=== PATIENT | male | born 1975 | race Caucasian/White ===

== ENCOUNTER 2019-03-21 13:54 | Inpatient (IN) | payer MEDICARE, OTHER ==
[~2019-03-21] VITALS: Ht 187.9 cm; Wt 101.7 kg
[2019-03-21] MEDS: NS IV 1000 ML 1,000 ML IV ONE ×2 (13:46→14:36)
[2019-03-21 14:37] LABS: BASOPHILS % (AUTO) 0 % (0-10); EOSINOPHILS # (AUTO) 0.2 10^3/uL (0.0-0.3); EOSINOPHILS % (AUTO) 1 % (0-10); HEMATOCRIT 48 % (40-54); HEMOGLOBIN 16.5 G/DL (13.3-17.7); LYMPHOCYTES # (AUTO) 2.3 X 10^3 (1.0-4.0); LYMPHOCYTES % (AUTO) 15 % (12-44); MEAN CORPUSCULAR HEMOGLOBIN 31 PG (25-34); MEAN CORPUSCULAR HGB CONC 35 G/DL (32-36); MEAN CORPUSCULAR VOLUME 89 FL (80-99); MEAN PLATELET VOLUME 10.2 FL (7.4-10.4); MONOCYTES % (AUTO) 7 % (0-12); NEUTROPHILS # (AUTO) 12.2 X 10^3 (1.8-7.8); NEUTROPHILS % (AUTO) 77 % (42-75); PLATELET COUNT 296 10^3/uL (130-400); RED CELL DISTRIBUTION WIDTH 13.5 % (10.0-14.5); WHITE BLOOD COUNT 15.8 10^3/uL (4.3-11.0)
--- NOTE | 2019-03-21 14:39 | ED General ---
General Chief Complaint: Skin/Wound Problems Stated Complaint: L FOOT PAIN / SWELLING Nursing Triage Note: STATES HE WAS SEEN AT [facility] ON FRIDAY ET PUT ON CLINDA FOR AN INFECTION IN HIS LEFT GREAT TOE. NOW THERE IS PUS COMING FROM THE AREA AND THERE IS A BLACK SPOT. HAS A HX OF MRSA. Nursing Sepsis Screen: No Definite Risk Source of Information: Patient Exam Limitations: No Limitations (LUCIANO WILLIS STUDENT) History of Present Illness Date Seen by Provider: Mar 21, 2019 Time Seen by Provider: 14:20 Initial Comments Patient presents to the ED today with a 10 day history of a swollen, erythematic left foot. The patient has Diabetes Mellitus Type 2 and was first treated for cellulitis of this same foot at [facility] on . An XR of the foot was taken and he was prescribed Clindamycin. The patients states today that the erythema has improved, but now his big toe is more swollen and has a visible hole/wound that is producing purulent discharge. He is now also experiencing pain in the foot that was not present when seen at [facility]. He states he has also experienced the chills a few times, but has never taken his temperature; he is afebrile upon presentation today. He denies any other systemic symptoms. Timing/Duration: Getting Worse, Other (10 days ago) Severity: Moderate Modifying Factors: improves with Medication (has improved erythema, but not the swelling) Associated Systoms: Fever/Chills, Other (erythematous and inflammed left foot) (LUCIANO WILLIS STUDENT) Initial Comments Here with concerns about worsening of his left great toe. Noticed that it has become increasingly red and has wound that is draining some purulence. He is d iabetic with good control of his blood sugars now but had 10 years of poor control. Does smoke. Denies fevers but reports chills. Timing/Duration: Getting Worse, Other (10 days ago) Severity: Moderate Modifying Factors: improves with Medication (has improved erythema, but not the swelling) Associated Systoms: Fever/Chills; No Nausea/Vomiting, No Weakness; Other (erythematous and inflammed left foot) (WILBER LAUGHLIN MD) Allergies and Home Medications Allergies Coded Allergies: Penicillins (Verified Allergy, Severe, RASH, 03/21/19) Patient Home Medication List Home Medication List Reviewed: Yes (WILBER LAUGHLIN MD) Review of Systems Review of Systems Constitutional: see HPI EENTM: no symptoms reported Respiratory: no symptoms reported Cardiovascular: no symptoms reported Gastrointestinal: no symptoms reported Genitourinary: no symptoms reported Musculoskeletal: see HPI Skin: see HPI Psychiatric/Neurological: No Symptoms Reported Hematologic/Lymphatic: No Symptoms Reported Immunological/Allergic: no symptoms reported (LUCIANO WILLIS) Constitutional: see HPI, chills; No fever Respiratory: No cough, No short of breath Cardiovascular: No chest pain, No palpitations Gastrointestinal: No abdominal pain, No nausea, No vomiting Psychiatric/Neurological: Anxiety; Denies Headache; Paresthesia (bilateral feet) (WILBER LAUGHLIN MD) Past Tcatwqo-Rryamv-Uhjiwd Hx Past Med/Social Hx: Reviewed Nursing Past Med/Soc Hx (WILBER LAUGHLIN MD) Patient Social History Alcohol Use: Denies Use Recreational Drug Use: Yes Drug of Choice: POT Smoking Status: Current Everyday Smoker Recent Foreign Travel: No Contact w/Someone Who Travel: No Recent Infectious Disease Expo: No Recent Hopitalizations: Yes (ER VISIT) (LUCIANO WILLIS) Seasonal Allergies Seasonal Allergies: No (LUCIANO WILLIS) Past Medical History Surgeries: No Respiratory: No Cardiac: Yes (CARDIOVASCULAR DZ) High Cholesterol, Hypertension Neuropathy Genitourinary: No Gastrointestinal: No Musculoskeletal: Yes Fractures Endocrine: Yes Diabetes, Non-Insulin dep HEENT: No Cancer: No Psychosocial: Yes Anxiety, Depression Integumentary: No (LUCIANO WILLIS) Family Medical History Reviewed Nursing Family Hx (WILBER LAUGHLIN MD) Physical Exam-Suspected Sepsis Physical Exam Vital Signs Vital Signs - First Documented 03/21/19 14:00 Temp 36.6 Pulse 96 Resp 16 B/P (MAP) 146/90 (108) Pulse Ox 97 O2 Delivery Room Air (WILBER LAUGHLIN MD) Vital Signs Capillary Refill : Less Than 3 Seconds (LUCIANO WILLIS STUDENT) Blood Pressure Mean: 108 Height, Weight, BMI Height: '" Weight: lbs. oz. kg; 29.00 BMI Method: General Appearance: No Apparent Distress Eyes: Bilateral Eye Normal Inspection, Bilateral Eye PERRL, Bilateral Eye EOMI HEENT: PERRL/EOMI, Pharynx Normal Respiratory: Chest Non Tender, Lungs Clear, Normal Breath Sounds, No Accessory Muscle Use, No Respiratory Distress Cardiovascular: Regular Rate, Rhythm, No Edema, No Gallop, No JVD, No Murmur, Normal Peripheral Pulses Gastrointestinal: Normal Bowel Sounds, No Organomegaly, No Pulsatile Mass, Non Tender, Soft Extremity: Inflammation (Left Foot) Neurologic/Psychiatric: Alert, Oriented x3, Normal Mood/Affect Skin: other (erythema and dry skin on the left foot) Lymphatic: No Adenopathy (LUCIANO WILLIS STUDENT) General Appearance: No Apparent Distress, WD/WN HEENT: PERRL/EOMI, Pharynx Normal Respiratory: Lungs Clear, Normal Breath Sounds Cardiovascular: Regular Rate, Rhythm, No Murmur Extremity: Inflammation (Left Foot), Swelling (left great toe and forefoot) Neurologic/Psychiatric: Alert, Oriented x3 Skin: rash (athlete's foot bilateral), ulcerations (left great toe medial side underneath. 2-3 mm black and ulcer that has some drainage.), other (erythema and dry skin on the left foot) (WILBER LAUGHLIN MD) Focused Exam Lactate Level 03/21/19 15:23: Lactic Acid Level 1.23 (WILBER LAUGHLIN MD) Lactic Acid Level Laboratory Tests Test 03/21/19 15:23 Lactic Acid Level 1.23 MMOL/L (0.50-2.00) (WILBER LAUGHLIN MD) Progress/Results/Core Measures Suspected Sepsis Recent Fever Within 48 Hours: No Infection Criteria Present: Documented Infection New/Unexplained Altered Menta: No Sepsis Screen: No Definite Risk SIRS Temperature: Pulse: 96 Respiratory Rate: 16 Blood Pressure 146 /90 Mean: 108 (LUCIANO WILLIS STUDENT) Results/Orders Lab Results Laboratory Tests Test 03/21/19 14:20 03/21/19 14:45 03/21/19 15:23 Range/Units White Blood Count 15.8 H 4.3-11.0 10^3/uL Red Blood Count 5.34 4.35-5.85 10^6/uL Hemoglobin 16.5 13.3-17.7 G/DL Hematocrit 48 40-54 % Mean Corpuscular Volume 89 80-99 FL Mean Corpuscular Hemoglobin 31 25-34 PG Mean Corpuscular Hemoglobin Concent 35 32-36 G/DL Red Cell Distribution Width 13.5 10.0-14.5 % Platelet Count 296 130-400 10^3/uL Mean Platelet Volume 10.2 7.4-10.4 FL Neutrophils (%) (Auto) 77 H 42-75 % Lymphocytes (%) (Auto) 15 12-44 % Monocytes (%) (Auto) 7 0-12 % Eosinophils (%) (Auto) 1 0-10 % Basophils (%) (Auto) 0 0-10 % Neutrophils # (Auto) 12.2 H 1.8-7.8 X 10^3 Lymphocytes # (Auto) 2.3 1.0-4.0 X 10^3 Monocytes # (Auto) 1.0 0.0-1.0 X 10^3 Eosinophils # (Auto) 0.2 0.0-0.3 10^3/uL Basophils # (Auto) 0.0 0.0-0.1 10^3/uL Neutrophils % (Manual) 75 % Lymphocytes % (Manual) 16 % Monocytes % (Manual) 8 % Band Neutrophils 1 % Hypersegmented Neutrophils MODERATE Blood Morphology Comment NORMAL Prothrombin Time 13.6 12.2-14.7 SEC INR Comment 1.0 0.8-1.4 Activated Partial Thromboplast Time 32 24-35 SEC Sodium Level 142 135-145 MMOL/L Potassium Level 3.5 L 3.6-5.0 MMOL/L Chloride Level 101 98-107 MMOL/L Carbon Dioxide Level 24 21-32 MMOL/L Anion Gap 17 H 5-14 MMOL/L Blood Urea Nitrogen 15 7-18 MG/DL Creatinine 0.88 0.60-1.30 MG/DL Estimat Glomerular Filtration Rate > 60 BUN/Creatinine Ratio 17 Glucose Level 124 H 70-105 MG/DL Calcium Level 9.8 8.5-10.1 MG/DL Corrected Calcium 8.5-10.1 MG/DL Total Bilirubin 0.9 0.1-1.0 MG/DL Aspartate Amino Transf (AST/SGOT) 20 5-34 U/L Alanine Aminotransferase (ALT/SGPT) 31 0-55 U/L Alkaline Phosphatase 159 H 40-136 U/L C-Reactive Protein High Sensitivity 1.01 H 0.00-0.50 MG/DL Total Protein 8.4 H 6.4-8.2 GM/DL Albumin 4.7 H 3.2-4.5 GM/DL Urine Color YELLOW Urine Clarity CLEAR Urine pH 5 5-9 Urine Specific [place] 1.025 H 1.016-1.022 Urine Protein 2+ H NEGATIVE Urine Glucose (UA) NEGATIVE NEGATIVE Urine Ketones 1+ H NEGATIVE Urine Nitrite NEGATIVE NEGATIVE Urine Bilirubin NEGATIVE NEGATIVE Urine Urobilinogen 1 NORMAL MG/DL Urine Leukocyte Esterase 1+ H NEGATIVE Urine RBC (Auto) NEGATIVE NEGATIVE Urine RBC NONE /HPF Urine WBC 5-10 H /HPF Urine Crystals NONE /LPF Urine Bacteria MODERATE H /HPF Urine Casts NONE /LPF Urine Mucus LARGE H /LPF Urine Culture Indicated YES Lactic Acid Level 1.23 0.50-2.00 MMOL/L (IWLBER LAUGHLIN MD) My Orders Orders - WILBER LAUGHLIN MD Cbc With Automated Diff (03/21/19 14:24) Comprehensive Metabolic Panel (03/21/19 14:24) Blood Culture (03/21/19 14:24) Sputum Culture (03/21/19 14:24) Urinalysis (03/21/19 14:24) Urine Culture (03/21/19 14:24) Protime With Inr (03/21/19 14:24) Partial Thromboplastin Time (03/21/19 14:24) Chest 1 View, Ap/Pa Only (03/21/19 14:24) Ed Iv/Invasive Line Start (03/21/19 14:24) Ed Iv/Invasive Line Start (03/21/19 14:24) Vital Signs Adult Sepsis Patie Q15M (03/21/19 14:24) O2 (03/21/19 14:24) Remove Rings In Anticipation O (03/21/19 14:24) Lactic Acid Analyzer (03/21/19 14:24) Ed Iv/Invasive Line Start (03/21/19 14:24) Ns Iv 1000 Ml (Sodium Chloride 0.9%) (03/21/19 14:24) Hs C Reactive Protein (03/21/19 14:28) Wound Culture (03/21/19 14:28) Foot, Left, 3 Views (03/21/19 14:28) Manual Differential (03/21/19 14:20) Ceftriaxone For Iv Use (Rocephin For I (03/21/19 15:30) (WILBER LAUGHLIN MD) Medications Given in ED Current Medications Medications Dose Ordered Sig/Deanne Route Start Time Stop Time Status Last Admin Dose Admin Ceftriaxone Sodium 1000 mg/ Sterile Water 10 ml @ 200 mls/hr ONCE ONCE IV 03/21/19 15:30 03/21/19 15:32 DC 03/21/19 15:55 200 MLS/HR Sodium Chloride 1,000 ml @ 0 mls/hr Q0M ONCE IV 03/21/19 14:24 03/21/19 14:27 DC 03/21/19 14:36 1,000 MLS/HR (WILBER LAUGHLIN MD) Vital Signs/I&O 03/21/19 14:00 Temp 36.6 Pulse 96 Resp 16 B/P (MAP) 146/90 (108) Pulse Ox 97 O2 Delivery Room Air (WILBER LAUGHLIN MD) Vital Signs/I&O Capillary Refill : Less Than 3 Seconds (LUCIANO WILLIS PA STUDENT) Blood Pressure Mean: 108 Progress Note : Progress Note Seen and evaluated the patient and agree with above except as indicated. I Have directed the plan of care. We will initiate sepsis protocol as well as x-ray of the left foot. Monitor patient. 1511: X-rays negative. White count is elevated and it does appear that he has cellulitis and diabetic ulcer to the left foot. He has failed outpatient treatment so we will manage inpatient. I discussed the case with Dr. Snell who accepts patient for admission. We will initiate Rocephin and vancomycin. Urine does appear to have findings consistent with UTI and this would be better covered with Rocephin. I did speak at length with the patient regarding smoking and adverse effects to healing. He is going to quit. He does have underlying anxiety disorder and his family is bringing in his meds for reconciliation. I will initiate Xanax 0.5 mg by mouth every 8 hours when necessary anxiety as he is going to try to quit smoking now. Rocephin 1 g initiated. Vancomycin 2 g to be given on arrival to the floor. Admit inpatient status. Dr. Chau agrees with plan. Patient and family agree with plan. (WILBER LAUGHLIN MD) Diagnostic Imaging Diagonstic Imaging: Xray Plain Films/CT/US/NM/MRI: other Comments NAME: YAMILET WATTERS [facility] REC#: [id number] PT STATUS: REG ER : 1975 PHYSICIAN: WILBER LAUGHLIN MD ADMIT DATE: 03/21/19/ER Signed Date of Exam: 03/21/19 FOOT, LEFT, 3 VIEWS INDICATION: Worsening of infection in the left great toe. FINDINGS: Three views of the left foot show no fracture, dislocation or other acute bony abnormality. There is no radiographic evidence of osteomyelitis. No mass or foreign body is seen. IMPRESSION: No acute abnormality is seen. Dictated by: Dictated on workstation # [id number] Dict: 03/21/19 1502 Trans: 03/21/191514 Interpreted by: LATONIA AYALA MD Electronically signed by: LATONIA AYALA MD 03/21/191514 Diagonstic Imaging: Xray Plain Films/CT/US/NM/MRI: chest Comments NAME: YAMILET WATTERS [facility] REC#: [id number] PT STATUS: REG ER : 1975 PHYSICIAN: WILBER LAUGHLIN MD ADMIT DATE: 03/21/19/ER Signed Date of Exam: 03/21/19 CHEST 1 VIEW, AP/PA ONLY INDICATION: Worsening of infection of the left great toe. History of MRSA. FINDINGS: Upright chest shows normal heart size and vascularity. The lungs are clear. There is no effusion or pneumothorax. There is no acute bony abnormality. IMPRESSION: No acute abnormality is seen. Dictated by: Dictated on workstation # [id number] Dict: 03/21/19 1458 Trans: 03/21/191514 Interpreted by: LATONIA AYALA MD Electronically signed by: LATONIA AYALA MD 03/21/191514 (WILBER LAUGHLIN MD) Departure Communication (Admissions) Time/Spoke to Admitting Phy: 15:16 (WILBER LAUGHLIN MD) Impression Primary Impression: Diabetic foot ulcer associated with type 2 diabetes mellitus Qualified Codes: E11.621 - Type 2 diabetes mellitus with foot ulcer; L97.529 - Non-pressure chronic ulcer of other part of left foot with unspecified severity Additional Impressions: Cellulitis of left foot Urinary tract infection Qualified Codes: N30.00 - Acute cystitis without hematuria Disposition: 09 ADMITTED INPATIENT Condition: Stable Admissions Decision to Admit Reason: Admit from ER (General) Decision to Admit/Date: Mar 21, 2019 Time/Decision to Admit Time: 15:16 (WIBLER LAUGHLIN MD) Departure-Patient Inst. Referrals: NACHO MEYERS DO (PCP/Family) Primary Care Physician LUCIANO WILLIS STUDENT Mar 21, 2019 14:39 WILBER LAUGHLIN MD Mar 21, 2019 16:19
--- NOTE | 2019-03-21 14:52 | NUR ---
radiology in room to obtain images
[2019-03-21 14:54] LABS: BILIRUBIN,URINE NEGATIVE (NEGATIVE); CLARITY,URINE CLEAR; COLOR,URINE YELLOW; GLUCOSE, URINE (UA) NEGATIVE (NEGATIVE); KETONES,URINE 1+ (NEGATIVE); LEUKOCYTE ESTERASE ,URINE 1+ (NEGATIVE); NITRITE,URINE NEGATIVE (NEGATIVE); PH,URINE 5 (5-9); PROTEIN,URINE 2+ (NEGATIVE)
[2019-03-21 14:55] LABS: ALANINE AMINOTRANSFERASE 31 U/L (0-55); ALBUMIN 4.7 GM/DL (3.2-4.5); ALKALINE PHOSPHATASE 159 U/L (40-136); BILIRUBIN,TOTAL 0.9 MG/DL (0.1-1.0); BUN/CREATININE RATIO 17; CALCIUM 9.8 MG/DL (8.5-10.1); CARBON DIOXIDE 24 MMOL/L (21-32); CHLORIDE 101 MMOL/L (98-107); CREATININE SERUM 0.88 MG/DL (0.60-1.30); GFR ESTIMATED > 60; GLUCOSE 124 MG/DL (70-105); POTASSIUM 3.5 MMOL/L (3.6-5.0); SODIUM 142 MMOL/L (135-145); TOTAL PROTEIN 8.4 GM/DL (6.4-8.2)
[2019-03-21 14:58] LABS: PROTHROMBIN TIME PATIENT 13.6 SEC (12.2-14.7)
--- NOTE | 2019-03-21 15:02 | Diagnostic Imaging Report ---
INDICATION: Worsening of infection of the left great toe. History of MRSA. FINDINGS: Upright chest shows normal heart size and vascularity. The lungs are clear. There is no effusion or pneumothorax. There is no acute bony abnormality. IMPRESSION: No acute abnormality is seen. Dictated by: Dictated on workstation # [id number]
--- NOTE | 2019-03-21 15:11 | Diagnostic Imaging Report ---
INDICATION: Worsening of infection in the left great toe. FINDINGS: Three views of the left foot show no fracture, dislocation or other acute bony abnormality. There is no radiographic evidence of osteomyelitis. No mass or foreign body is seen. IMPRESSION: No acute abnormality is seen. Dictated by: Dictated on workstation # [id number]
[2019-03-21 15:18] LABS: BAND NEUTROPHILS 1 %; HYPERSEGMENTED NEUT MODERATE; LYMPHOCYTES % (MANUAL) 16 %; MONOCYTES % (MANUAL) 8 %; NEUTROPHILS % (MANUAL) 75 %; RBC MORPH NORMAL
[2019-03-21 15:21] LABS: BACTERIA,URINE MODERATE /HPF
[2019-03-21] MEDS ORDERED: cefTRIAXone FOR IV USE 1,000 MG in WATER (STERILE) FOR INJECTION 10 ML IV ONE (15:30)
--- NOTE | 2019-03-21 16:40 | NUR ---
YAMILET WATTERS admitted to room 414-1, with an admitting diagnosis of DIABETIC FOOT ULCER, UTI, on 03/21/19 from [facility] ED via WHEELCHAIR, accompanied by FAMILY AND STAFF.YAMILET WATTERS introduced to surroundings, call light, bed controls, phone, TV, temperature control, lights, meal times, smoking policy, visitor policy, side rail policy, bathrooms and showers. Patient Rights given to patient in the handbook. YAMILET WATTERS verbalizes understanding that [facility] is not responsible for the loss or damage to any personal effects or valuables that are kept in the patients posession during their hospitalization.
--- NOTE | 2019-03-21 16:42 | NUR ---
CR 0.88; CR CL > 80; WT 103 KG; VANCO 2250 MG IV BOLUS THEN 2000 MG IV Q12H; TROUGH AFTER 3RD DOSE
[2019-03-21] MEDS ORDERED: ALPRAZolam 0.5 MG (XANAX) TAB PO PRN (16:45)
[2019-03-21 16:46] VITALS: BP 144/84
[2019-03-21] MEDS ORDERED: VANCOMYCIN INJECTION 2,250 MG in NS IV 500 ML 500 ML IV NR (17:00)
[2019-03-21] MEDS ORDERED: CATHETER FLUSH 10 ML SYR IV PRN (17:00)
[2019-03-21 17:01] VITALS: BP 144/84
[2019-03-21] MEDS: amLODIPine 5 MG (NORVASC) TAB PO SCH (17:32)
[2019-03-21] MEDS: lisINopril 20 MG (PRINIVIL) TABLET PO SCH (17:32)
[2019-03-21] MEDS: CARVEDILOL 3.125 MG (COREG) TABLET PO SCH (17:32)
[2019-03-21] MEDS: CATHETER FLUSH 10 ML SYR IV SCH (19:36)
[2019-03-21 21:00] VITALS: BP 143/81
[2019-03-22] VITALS: BP 112/73
[2019-03-22 04:00] VITALS: BP 101/67
[2019-03-22] MEDS ORDERED: VANCOMYCIN 2000 MG/NS 500 ML IVPB IV SCH ×2 (05:00)
[2019-03-22] MEDS: CATHETER FLUSH 10 ML SYR IV SCH (05:06)
[2019-03-22 06:50] LABS: BASOPHILS # (AUTO) 0.1 10^3/uL (0.0-0.1); BASOPHILS % (AUTO) 1 % (0-10); EOSINOPHILS # (AUTO) 0.3 10^3/uL (0.0-0.3); EOSINOPHILS % (AUTO) 3 % (0-10); HEMATOCRIT 42 % (40-54); HEMOGLOBIN 14.2 G/DL (13.3-17.7); LYMPHOCYTES # (AUTO) 2.7 X 10^3 (1.0-4.0); LYMPHOCYTES % (AUTO) 32 % (12-44); MEAN CORPUSCULAR HEMOGLOBIN 31 PG (25-34); MEAN CORPUSCULAR HGB CONC 34 G/DL (32-36); MEAN CORPUSCULAR VOLUME 90 FL (80-99); MONOCYTES # (AUTO) 0.8 X 10^3 (0.0-1.0); MONOCYTES % (AUTO) 10 % (0-12); NEUTROPHILS # (AUTO) 4.5 X 10^3 (1.8-7.8); NEUTROPHILS % (AUTO) 55 % (42-75); PLATELET COUNT 252 10^3/uL (130-400); RED CELL DISTRIBUTION WIDTH 13.4 % (10.0-14.5); WHITE BLOOD COUNT 8.2 10^3/uL (4.3-11.0)
[2019-03-22 07:14] LABS: ALANINE AMINOTRANSFERASE 25 U/L (0-55); ALBUMIN 3.8 GM/DL (3.2-4.5); ALKALINE PHOSPHATASE 123 U/L (40-136); BILIRUBIN,TOTAL 0.9 MG/DL (0.1-1.0); BUN/CREATININE RATIO 13; CALCIUM 8.9 MG/DL (8.5-10.1); CARBON DIOXIDE 23 MMOL/L (21-32); CHLORIDE 103 MMOL/L (98-107); CREATININE SERUM 0.77 MG/DL (0.60-1.30); GFR ESTIMATED > 60; GLUCOSE 97 MG/DL (70-105); POTASSIUM 3.6 MMOL/L (3.6-5.0); SODIUM 139 MMOL/L (135-145); TOTAL PROTEIN 6.7 GM/DL (6.4-8.2)
[2019-03-22] MEDS ORDERED: FLU QUADRIvalent (5+ YOA) 2019-2020 (AFLURIA) 0.5 ML IM ONE (07:45)
[2019-03-22] MEDS: lisINopril 20 MG (PRINIVIL) TABLET PO SCH (08:00)
[2019-03-22] MEDS: CARVEDILOL 3.125 MG (COREG) TABLET PO SCH (08:00)
[2019-03-22] MEDS: amLODIPine 5 MG (NORVASC) TAB PO SCH (08:00)
[2019-03-22] MEDS ORDERED: PIOG15TA67 PO (09:57)
[2019-03-22] MEDS ORDERED: INSU200I4 SC (09:57)
[2019-03-22] MEDS ORDERED: CARV3.122 PO (09:57)
[2019-03-22] MEDS ORDERED: CLON0.5T13 PO (09:57)
[2019-03-22] MEDS ORDERED: CLIN150C17 PO (09:57)
[2019-03-22] MEDS ORDERED: VORT10TA PO (09:57)
[2019-03-22] MEDS ORDERED: LISI10TA2 PO (09:57)
[2019-03-22] MEDS ORDERED: AMLO2.5T4 PO (09:57)
[2019-03-22] MEDS ORDERED: QUET400T54 PO (09:57)
[2019-03-22] MEDS ORDERED: EXEN2AUT SC (09:57)
[2019-03-22] MEDS ORDERED: ATOR20TA66 PO (09:57)
[2019-03-22] MEDS ORDERED: ACET-77 PO (09:59)
--- NOTE | 2019-03-22 10:00 | NUR ---
SPOKE WITH PT (HE ALSO HAD HIS BOTTLES) AND WENT THRU THE EXT MED HISTORY TO COMPLETE THE MED REC. HE WAS ABLE TO TELL ME HOW/WHEN SHE TAKES ALL HIS MEDICATIONS. CARVEDILOL 3.125MG: THE DIRECTIONS ON THE BOTTLE SAY 1 TAB BID, BUT PT TAKES BOTH TABS AT THE SAME TIME AROUND 2PM DAILY. ALL HIS MEDICATIONS ARE SHOWN ON THE EXT MED HISTORY AND ALL HAVE RECENT DATING. OTC MEDS: ADVIL PRN
[2019-03-22] MEDS ORDERED: IBUP200C11 PO (10:04)
[2019-03-22] MEDS ORDERED: DOXY100C2 PO (12:23)
[2019-03-22 12:26] VITALS: BP 112/78
[2019-03-22] MEDS ORDERED: cefTRIAXone 1,000 MG/SWFI 10 ML IV PUSH IV SCH ×2 (15:00)
--- NOTE | 2019-03-22 15:08 | Wound Care Assessment ---
Wound Care Assessment Date Seen by Provider: Mar 22, 2019 Time Seen by Provider: 12:30 Chief Complaint L great toe ulcer. HPI The patient is a 44 year old male with cellulitis of L great toe in a setting of diabetic neuropathy. His wounded area is improved on IV Vancomycin and discharge is anticipated on Doxycycline. He wants to follow-up in [facility] as an out-patient. Imaging is reportedly negative for osteomyelitis. He reports that his HgbA1c is below 6.0. The wounded area appears dry and clean at this time. We will [id number] as an out-patient. Past Medical History: Admits Diabetes Type II, Admits Heart Disease (Hypertension.) Smoking Status: Current Everyday Smoker Recreational Drug Use: Yes Alcohol Use: Denies Use Review of Systems Pulmonary: No Dyspnea Cardiovascular: No: Chest Pain Exam Vital Signs Date Time Temp Pulse Resp B/P (MAP) Pulse Ox O2 Delivery O2 Flow Rate FiO2 03/22/19 13:34 03/22/19 12:26 35.6 91 20 98 Room Air Capillary Refill : Less Than 3 Seconds General Appearance: no apparent distress Cardiovascular: regular rate, rhythm, no murmur Respiratory: normal breath sounds, no respiratory distress Gastrointestinal: normal bowel sounds, non tender Extremities: other (0.5 x 0.6 x 0.1 cm ulcer with eschar.) Results Laboratory Tests 03/21/19 15:23: Lactic Acid Level 1.23 03/21/19 19:56: Glucometer 110 03/22/19 06:01: White Blood Count 8.2, Red Blood Count 4.66, Hemoglobin 14.2, Hematocrit 42, Mean Corpuscular Volume 90, Mean Corpuscular Hemoglobin 31, Mean Corpuscular Hemoglobin Concent 34, Red Cell Distribution Width 13.4, Platelet Count 252, Mean Platelet Volume 10.0, Neutrophils (%) (Auto) 55, Lymphocytes (%) (Auto) 32, Monocytes (%) (Auto) 10, Eosinophils (%) (Auto) 3, Basophils (%) (Auto) 1, Neutrophils # (Auto) 4.5, Lymphocytes # (Auto) 2.7, Monocytes # (Auto) 0.8, Eosinophils # (Auto) 0.3, Basophils # (Auto) 0.1, Sodium Level 139, Potassium Level 3.6, Chloride Level 103, Carbon Dioxide Level 23, Anion Gap 13, Blood Urea Nitrogen 10, Creatinine 0.77, Estimat Glomerular Filtration Rate > 60, BUN/Creatinine Ratio 13, Glucose Level 97, Calcium Level 8.9, Corrected Calcium 9.1, Total Bilirubin 0.9, Aspartate Amino Transf (AST/SGOT) 19, Alanine Aminotransferase (ALT/SGPT) 25, Alkaline Phosphatase 123, Total Protein 6.7, Albumin 3.8 03/22/19 11:13: Glucometer 143H Microbiology 03/21/19 Blood Culture - Preliminary, Resulted No growth Microbiology 03/21/19 Blood Culture - Preliminary, Resulted No growth 03/21/19 Blood Culture - Preliminary, Resulted No growth Assessment/Plan/Dx 1. Diabetic foot ulcer, with cellulitis. 2. Diabetic neuropathy. 3. Heart disease. Plan: to be discharged on Doxycycline. Close follow-up in [facility]. BRISEIDA LUJAN MD Mar 22, 2019 15:08 POS
--- NOTE | 2019-03-22 17:05 | Discharge Summary ---
Discharge Summary Hospital Course Was the Problem List Reviewed?: Yes Problems/Dx: (1) Type 2 diabetes mellitus with left diabetic foot infection Status: Acute Final Diagnosis: Diabetic foot infection Hospital Course Date of Admission: Mar 21, 2019 at 16:13 Admission Diagnosis : Diabetic foot infection Family Physician/Provider: Tl Roldan DO Date of Discharge: 03/22/19 Discharge Diagnosis: Diabetic foot infection Hospital Course: Jose Almaraz is a 44yoM with PMH T2DM with neuropathy who presented with a diabetic foot infection. X-ray showed no evidence of osteomyelitis. He was treated with IV Vancomycin and Ceftriaxone and was transitioned to oral Doxycycline on discharge. He was given a two week course of Doxycycline. He was seen by Dr. Long who agreed with oral antibiotics, discharge, and follow up in wound clinic. Labs and Pending Lab Test: Laboratory Tests 03/21/19 19:56: Glucometer 110 03/22/19 06:01: White Blood Count 8.2, Red Blood Count 4.66, Hemoglobin 14.2, Hematocrit 42, Mean Corpuscular Volume 90, Mean Corpuscular Hemoglobin 31, Mean Corpuscular Hemoglobin Concent 34, Red Cell Distribution Width 13.4, Platelet Count 252, Mean Platelet Volume 10.0, Neutrophils (%) (Auto) 55, Lymphocytes (%) (Auto) 32, Monocytes (%) (Auto) 10, Eosinophils (%) (Auto) 3, Basophils (%) (Auto) 1, Neutrophils # (Auto) 4.5, Lymphocytes # (Auto) 2.7, Monocytes # (Auto) 0.8, Eosinophils # (Auto) 0.3, Basophils # (Auto) 0.1, Sodium Level 139, Potassium Level 3.6, Chloride Level 103, Carbon Dioxide Level 23, Anion Gap 13, Blood Urea Nitrogen 10, Creatinine 0.77, Estimat Glomerular Filtration Rate > 60, BUN/Creatinine Ratio 13, Glucose Level 97, Calcium Level 8.9, Corrected Calcium 9.1, Total Bilirubin 0.9, Aspartate Amino Transf (AST/SGOT) 19, Alanine Aminotransferase (ALT/SGPT) 25, Alkaline Phosphatase 123, Total Protein 6.7, Albumin 3.8 03/22/19 11:13: Glucometer 143H Microbiology 03/21/19 Blood Culture - Preliminary, Resulted No growth 03/21/19 Urine Culture - Preliminary, Resulted Culture In Progress 03/21/19 Gram Stain, Resulted Pending 03/21/19 Wound Culture - Preliminary, Resulted Mixed Bacterial [place] Culture In Progress Home Meds Active Doxycycline Hyclate 100 Mg Capsule 100 Mg PO BID 14 Days Reported Advil (Ibuprofen) 200 Mg Capsule 400 Mg PO Q6H PRN Atorvastatin Calcium 20 Mg Tablet 20 Mg PO 1400 Amlodipine Besylate 2.5 Mg Tablet 2.5 Mg PO DAILY Carvedilol 3.125 Mg Tablet 6.25 Mg PO 1400 Lisinopril 10 Mg Tablet 10 Mg PO 1400 Clonazepam 0.5 Mg Tablet 0.5 Mg PO TID PRN Tresiba Flextouch U-200 (Insulin Degludec) 200 Unit/1 Ml Insuln.pen 66 Units SC 1400 Trintellix (Vortioxetine Hydrobromide) 10 Mg Tablet 10 Mg PO 1400 Quetiapine Fumarate ER (Quetiapine Fumarate) 400 Mg Tab.er.24h 400 Mg PO HS Pioglitazone HCl 15 Mg Tablet 15 Mg PO 1400 Bydureon Bcise (Exenatide Microspheres) 2 Mg/0.85 Ml Auto.injct 2 Mg SC FRIDAY INJECT ONCE WEEKLY ON FRIDAY Assessment/Pt Instructions Take antibiotics as prescribed. Complete the antibiotic even if you are feeling better. Follow up in wound clinic. Discharge Instructions Discharge Diet: ADA Diet Activity as Tolerated: Yes Pneumonia Vaccine Order Indica: Yes Discharge Physical Examination General Appearance: Alert, Oriented X3, Cooperative, No Acute Distress HEENT: Atraumatic, EOMI, Mucous Memb Moist/[place] Respiratory: Clear to Auscultation, Normal Air Movement Cardiovascular: Regular Rate, No Murmurs Abdominal: Normal Bowel Sounds, Soft, No Tenderness Extremities: No Edema, No Tenderness/Swelling Skin: Other (left great toe wound, several other calluses present) Psych/Mental Status: Mental Status NL, Mood NL Allergies: Coded Allergies: Penicillins (Verified Allergy, Severe, RASH, 03/21/19) Discharge Summary Date of Admission Mar 21, 2019 at 16:13 Date of Discharge Mar 22, 2019 at 13:36 Discharge Date: Mar 22, 2019 Discharge Time: 12:00 Admission Diagnosis Diabetic foot infection Consults/Procedures Consulations Wound Discharge Diagnosis Type 2 diabetes mellitus with left diabetic foot infection (1) Type 2 diabetes mellitus with left diabetic foot infection Status: Acute Clinical Quality Measures DVT/VTE Risk/Contraindication: Risk Factor Score Per Nursin RFS Level Per Nursing on Admit: 4+=Very High HUNG AVILES MD Mar 22, 2019 17:05 POS
[2019-03-23] MEDS ORDERED: TROUGH ORDER-PHARMACY XX NR (04:00)
[2019-03-23 16:50] VITALS: BP 153/96
== END 2019-03-22 13:36 | disposition home or self-care (01) | DRG 638 ==
LOC: ER 13:57 → 4TH 16:13
PROVIDERS: ADMIT Family Medicine; ATTEND Family Medicine
DX: E11.621 Type 2 diabetes mellitus with foot ulcer (principal); L97.529 Non-pressure chronic ulcer of other part of left foot with unspecified severity; L03.032 Cellulitis of left toe; L03.116 Cellulitis of left lower limb; N30.00 Acute cystitis without hematuria; E11.40 Type 2 diabetes mellitus with diabetic neuropathy, unspecified; I10 Essential (primary) hypertension; F17.200 Nicotine dependence, unspecified, uncomplicated; F41.9 Anxiety disorder, unspecified; F32.9 Major depressive disorder, single episode, unspecified; E78.00 Pure hypercholesterolemia, unspecified; B35.3 Tinea pedis
CPT/HCPCS: 36415; 71045; 73630; 80053; 81000; 82962; 83605; 85007; 85025; 85027; 85610; 85730; 86141; 87040; 87070; 87077; 87088; 87185; 87205; 96374

== ENCOUNTER → 2019-03-30 | Outpatient (CLI) | payer MEDICARE ==
[~2019-03-30] MED LIST: ACET-77 PO; AMLO2.5T4 PO; ATOR20TA66 PO; CARV3.122 PO; CLIN150C17 PO; CLON0.5T13 PO; DOXY100C2 PO; EXEN2AUT SC; IBUP200C11 PO; INSU200I4 SC; LISI10TA2 PO; PIOG15TA67 PO; QUET400T54 PO; VORT10TA PO
== END ==
LOC: WOUNDCARE 13:09
PROVIDERS: ATTEND Surgery
DX: E11.621 Type 2 diabetes mellitus with foot ulcer (principal); E11.52 Type 2 diabetes mellitus with diabetic peripheral angiopathy with gangrene; E11.42 Type 2 diabetes mellitus with diabetic polyneuropathy; L97.522 Non-pressure chronic ulcer of other part of left foot with fat layer exposed; T65.222A Toxic effect of tobacco cigarettes, intentional self-harm, initial encounter; F17.218 Nicotine dependence, cigarettes, with other nicotine-induced disorders; I96 Gangrene, not elsewhere classified

== ENCOUNTER → 2019-04-13 | Outpatient (CLI) | payer MEDICARE | LOC: WOUNDCARE 14:48 | PROVIDERS: ATTEND Surgery | DX: E11.621 Type 2 diabetes mellitus with foot ulcer (principal); E11.42 Type 2 diabetes mellitus with diabetic polyneuropathy; L97.522 Non-pressure chronic ulcer of other part of left foot with fat layer exposed; T65.222A Toxic effect of tobacco cigarettes, intentional self-harm, initial encounter; F17.218 Nicotine dependence, cigarettes, with other nicotine-induced disorders | CPT/HCPCS: 99212 ==

== ENCOUNTER 2019-06-22 13:47 | Emergency (ER) | payer MEDICARE ==
[~2019-06-22] VITALS: Ht 187 cm; Wt 101.7 kg
[~2019-06-22 13:47] MED LIST changes: -ACET-77 PO; +ACET-78 PO; -CLON0.5T13 PO; +CLON0.5T4 PO
[2019-06-22] MEDS ORDERED: DOXY100T2 PO (14:19)
--- NOTE | 2019-06-22 14:19 | ED Integumentary General ---
General Chief Complaint: Skin/Wound Problems Stated Complaint: INFECTION ON THIGH Nursing Triage Note: PT PRESENTS TO THE ED WITH C/O AN AREA OF CANCERN TO THE RIGHT THIGH, PT STATES HE HAS A HX OF DIABETIC ULCERS AND WOUND HEALING ISSUES. STATES THE AREA BEGAN A NODULE ABOUT A MONTH AGO. Source: patient Exam Limitations: no limitations History of Present Illness Date Seen by Provider: Jun 22, 2019 Time Seen by Provider: 14:17 Initial Comments To ER with wound to medial right thigh for 1 month with increased draniage xa few days. no systemic symptoms such as malaise fevers or chills. Timing/Duration: getting worse Severity: moderate Associated Symptoms: denies symptoms Allergies and Home Medications Allergies Coded Allergies: Penicillins (Verified Allergy, Severe, RASH, 03/21/19) Home Medications Amlodipine Besylate 2.5 Mg Tablet, 2.5 MG PO DAILY, (Reported) Atorvastatin Calcium 20 Mg Tablet, 20 MG PO 1400, (Reported) Carvedilol 3.125 Mg Tablet, 6.25 MG PO 1400, (Reported) Clonazepam 0.5 Mg Tablet, 0.5 MG PO TID PRN for ANXIETY, (Reported) Doxycycline Hyclate 100 Mg Capsule, 100 MG PO BID Prescribed by: HUNG AVILES on 03/22/19 1223 Exenatide Microspheres 2 Mg/0.85 Ml Auto.injct, 2 MG SC FRIDAY, (Reported) INJECT ONCE WEEKLY ON FRIDAY Ibuprofen 200 Mg Capsule, 400 MG PO Q6H PRN for PAIN-MILD, (Reported) Insulin Degludec 200 Unit/1 Ml Insuln.pen, 66 UNITS SC 1400, (Reported) Lisinopril 10 Mg Tablet, 10 MG PO 1400, (Reported) Pioglitazone HCl 15 Mg Tablet, 15 MG PO 1400, (Reported) Quetiapine Fumarate 400 Mg Tab.er.24h, 400 MG PO HS, (Reported) Vortioxetine Hydrobromide 10 Mg Tablet, 10 MG PO 1400, (Reported) Patient Home Medication List Home Medication List Reviewed: Yes Review of Systems Review of Systems Constitutional: see HPI; No chills, No fever EENTM: see HPI Respiratory: no symptoms reported Cardiovascular: no symptoms reported Genitourinary: no symptoms reported Musculoskeletal: no symptoms reported Skin: no symptoms reported Psychiatric/Neurological: No Symptoms Reported Endocrine: No Symptoms Reported Past [id number] Hx Patient Social History Alcohol Use: Denies Use Recreational Drug Use: No Drug of Choice: POT Smoking Status: Never a Smoker Recent Foreign Travel: No Contact w/Someone Who Travel: No Recent Infectious Disease Expo: No Recent Hopitalizations: Yes (ER VISIT) Immunizations Up To Date Tetanus Booster (TDap): Less than 5yrs PED Vaccines UTD: Yes Seasonal Allergies Seasonal Allergies: No Past Medical History Surgeries: No Respiratory: No Cardiac: Yes (CARDIOVASCULAR DZ) High Cholesterol, Hypertension Neuropathy Genitourinary: No Gastrointestinal: No Musculoskeletal: Yes Fractures Endocrine: Yes Diabetes, Non-Insulin dep HEENT: No Cancer: No Psychosocial: Yes Anxiety, Depression Integumentary: No Physical Exam Vital Signs Vital Signs - First Documented 06/22/19 13:54 Temp 36.9 Pulse 101 Resp 20 B/P (MAP) 149/97 (114) Pulse Ox 100 O2 Delivery Room Air Capillary Refill : Less Than 3 Seconds General Appearance: WD/WN, no apparent distress HEENT: PERRL/EOMI, normal ENT inspection Neck: non-tender, full range of motion Respiratory: no respiratory distress, no accessory muscle use Extremities: normal range of motion, non-tender Neurologic/Psychiatric: alert, normal mood/affect, oriented x 3 Skin: normal color, warm/dry Skin Problem Character: abscess (4cm area of erythema to right medial thigh.drainage able to be expressed. culture collected. ) Progress/Results/Core Measures Results/Orders My Orders Orders - LUIS LAW APRN Wound Culture (06/22/19 14:16) Vital Signs/I&O 06/22/19 13:54 Temp 36.9 Pulse 101 Resp 20 B/P (MAP) 149/97 (114) Pulse Ox 100 O2 Delivery Room Air Blood Pressure Mean: 114 Departure Impression Primary Impression: Abscess Disposition: 01 HOME, SELF-CARE Condition: Stable Departure-Patient Inst. Decision time for Depature: 14:18 Referrals: NACHO MEYERS DO (PCP/Family) Primary Care Physician Patient Instructions: Skin Abscess Add. Discharge Instructions: 1. Return to ER for any concerns 2. See your doctor next week 3. All discharge instructions reviewed with patient and/or family. Voiced understanding. Scripts Doxycycline Hyclate (Doxycycline Hyclate) 100 Mg Tablet 100 MG PO BID, #20 TAB 0 Refills Prov: LUIS LAW APRN 06/22/19 LUIS LAW [employer]ITY CASE MANAGER Jun 22, 2019 14:19
[2019-06-22 14:25] VITALS: BP 149/97
== END 2019-06-22 14:25 | disposition home or self-care (01) ==
LOC: EDUNIT# 13:47 → ER 13:48
DX: L02.415 Cutaneous abscess of right lower limb (principal); I10 Essential (primary) hypertension; E78.00 Pure hypercholesterolemia, unspecified; E11.40 Type 2 diabetes mellitus with diabetic neuropathy, unspecified; F41.9 Anxiety disorder, unspecified; F32.9 Major depressive disorder, single episode, unspecified; Z88.0 Allergy status to penicillin; Z79.4 Long term (current) use of insulin
CPT/HCPCS: 87070; 87205; 99282